=== PATIENT | female | born 1960 | race Caucasian/White ===

== ENCOUNTER 2021-10-08 07:04 | Emergency (ER) | payer BC ==
[~2021-10-08] VITALS: Ht 154.9 cm; Wt 78.4 kg
--- NOTE | 2021-10-08 07:22 | RAD ---
RS Compliance Statement: One or more of the following individualized dose reduction techniques were utilized for this examinat ion: 1. Automated exposure control 2. Adjustment of the mA and/or kV according to patient size 3. Use of iterative reconstruction technique CT head without contrast 10/08/2021 7:07 AM INDICATION: Right hemiparesis COMPARISON: None available TECHNIQUE: Multiple axial CT images of the head were obtained from skull base through the vertex with out intravenous contrast. FINDINGS: Head: Ventricles, sulci and basal cisterns are within normal limits. There is no hydrocephalus. Hernandez-white matter differentiation is normal. There is no acute intracranial hemorrhage. There is no mass, mass e ffect or midline shift. Remote lacunar infarct in the left cerebellum. Visualized portions of the orbits are normal. Near complete opacification of the right maxillary sinu s and anterior ethmoid air cells. Mastoid air cells are well aerated. Scalp and calvaria are normal. IMPRESSION: No acute intracranial hemorrhage. Remote lacunar infarct in left cerebellum. FOR INTERNAL CODING PURPOSES Critical result: Findings discussed with TRISH HURTADO MD at 10/08/2021 7:15 AM. RESULT CODE: (C) Electronically signed by: Fanny Kidd MD (10/08/2021 7:20 AM) [id number]
[2021-10-08 07:34] LABS: BASO # 0.1 x10^3/uL (0.0-0.2); BASO % 1 % (0-3); EOS # 0.1 x10^3/uL (0.0-0.7); EOS % 1 % (0-3); HEMATOCRIT 47.4 % (36.0-47.0); HEMOGLOBIN 15.2 g/dL (12.0-15.5); LYMPH # 1.6 x10^3/uL (1.0-4.8); LYMPH % 11 % (24-48); MEAN CORPUSCULAR HEMOGLOBIN 26 pg (25-35); MEAN CORPUSCULAR HGB CONC 32 g/dL (31-37); MEAN CORPUSCULAR VOLUME 82 fL (79-100); MONO # 0.4 x10^3/uL (0.0-1.1); MONO % 3 % (0-9); NEUT # 12.4 x10^3uL (1.8-7.7); NEUT % 85 % (31-73); PLATELET COUNT 226 x10^3/uL (140-400); RED BLOOD COUNT 5.78 x10^6/uL (3.50-5.40); RED CELL DISTRIBUTION WIDTH 15.7 % (11.5-14.5); WHITE BLOOD COUNT 14.6 x10^3/uL (4.0-11.0)
[2021-10-08] MEDS: IV RINGERS SOLUTION,LACTATED 1,000 ML IV SCH (07:40)
[2021-10-08 07:42] LABS: CALCIUM 9.4 mg/dL (8.5-10.1); CREATININE 0.8 mg/dL (0.6-1.0); GFR 72.4; POTASSIUM 3.8 mmol/L (3.5-5.1)
--- NOTE | 2021-10-08 07:49 | RAD ---
[employer] Compliance Statement: One or more of the following individualized dose reduction techniques were utilized for this examinat ion: 1. Automated exposure control 2. Adjustment of the mA and/or kV according to patient size 3. Use of iterative reconstruction technique CTA HEAD AND NECK W/WO CONTRAST 10/08/2021 7:26 AM INDICATION: Right-sided deficits COMPARISON: CT head 10/08/2021 TECHNIQUE: Multiple axial CT images of the head and neck were obtained after the intravenous administ ration of nonionic contrast. Coronal and sagittal reformats are provided. Maximum intensity projectio n images are provided. Stenosis calculations for CT, MR, and conventional angiography are based upon measurements of the dis ade ICA diameter in accordance with the NASCET methodology. Stenosis calculations for carotid ultraso und studies are derived from validated velocity criteria which are known to correlate with the NASCET methodology. FINDINGS: Ventricles, sulci and basal cisterns are normal in appearance. Hernandez-white matter differentiation is p reserved. There is no mass, mass effect or midline shift. Posterior fossa is normal in appearance. Se lla and suprasellar cistern appear normal. Orbits are normal in appearance . Scalp and calvaria appea r intact. Paranasal sinuses are well aerated. Mastoid air cells are well aerated. Visualized portions of lungs are clear. Thyroid gland is normal in appearance. Neck soft tissues are normal in appearance. No pathologically enlarged cervical lymphadenopathy. Pharynx and larynx appear intact. Vascular findings: There is a normal three-vessel aortic arch. Severe calcified atheromatous plaque is identified involv ing the thoracic aorta. There is eccentric noncalcified atheromatous plaque with ulcerated margins me asuring 1.3 cm in thickness along the ascending thoracic aorta (series 8, image 842). Three-vessel co ronary artery vascular calcifications are present. Noncalcified atheromatous plaque is identified at the origin the right innominate artery with mild stenosis. Origin of the left common carotid artery i s patent. There is a short segment dissection involving the left subclavian origin (series 8, image 7 [id number]) with the true lumen measuring up to 6 mm, distally measuring 9 mm suggestive of at least 30 perce nt stenosis. Origin of the right common carotid artery is patent. There is mild irregularity of the right common c arotid artery secondary to noncalcified atheromatous plaque. There is calcified and noncalcified athe romatous plaque at the right carotid bifurcation. There is 25 percent stenosis of proximal right cerv ical internal carotid artery. Right mid to distal cervical internal carotid artery is tortuous in cou rse. External carotid artery is patent. Mild to moderate irregularity of the distal left common carotid artery secondary to noncalcified athe romatous plaque. Densely calcified atheromatous plaque identified the left carotid bifurcation withou t hemodynamically significant stenosis. Mild tortuosity of the left cervical internal carotid artery without significant stenosis. Vertebral arteries dominant. Left vertebral artery is diminutive and moderately irregular. Intracranial segments of internal carotid arteries are normal in course and caliber. There is mild ca lcified atheromatous plaque involving the cavernous segments without significant stenosis. Origins of the ophthalmic segments of the internal carotid artery appears widely patent. There is moderate irre gularity of the left middle cerebral artery and sylvian branches with mild to moderate multifocal berry noses. Mild to moderate irregularity of the right middle cerebral artery and sylvian branches. Anteri or cerebral arteries are normal in course and caliber. Anterior communicating artery is visualized. Basilar artery is mildly irregular compatible with intracranial atherosclerotic changes. There is fet al origin of the left posterior cerebral artery. Superior cerebellar arteries are widely patent. Post erior cerebral arteries are normal in course and caliber. There is no aneurysm, vascular malformation or high-grade stenosis/large vessel occlusion involving c ircle of [place]. Superior sagittal sinus is patent. IMPRESSION: 1. There is no evidence for acute intracranial hemorrhage. 2. 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 3. There is no evidence for hemodynamically significant carotid stenosis. Moderate calcified and nonc alcified atheromatous plaque identified at the carotid bifurcations. 4. Moderate irregularity of the common carotid arteries and intracranial vessels was compatible with atherosclerotic changes as detailed above. 5. Advanced calcified and noncalcified atheromatous plaque involving the thoracic aorta with ulcerate d plaque along the ascending aorta. No penetrating aortic ulcer. 6. There is no aneurysm, vascular malformation or high-grade stenosis/large vessel occlusion involvin g the [place]. 7. Moderate irregularity of the left vertebral artery without occlusion or dissection. FOR INTERNAL CODING PURPOSES Critical result: Findings discussed with TRISH HURTADO MD at 10/08/2021 7:40 AM. RESULT CODE: (C) Electronically signed by: Fanny Kidd MD (10/08/2021 7:47 AM) [id number]
[2021-10-08 07:54] LABS: ALBUMIN 3.9 g/dL (3.4-5.0); ALBUMIN/GLOBULIN RATIO 1.1 (1.0-1.7); MAGNESIUM 2.1 mg/dL (1.8-2.4); PHOSPHORUS 2.8 mg/dL (2.6-4.7); TOTAL BILIRUBIN 0.2 mg/dL (0.2-1.0); TOTAL PROTEIN 7.3 g/dL (6.4-8.2)
--- NOTE | 2021-10-08 08:26 | PHYS DOC ---
General Adult EDM: Chief Complaint: NEURO SYMPTOMS/DEFICITS HPI: HPI: Patient is a 58-year-old female coming in from home via EMS for code stroke. Patient has confusion, right upper and lower extremity weakness, and was incontinent of urine. Per last known normal was 2200 last night, approximately 9 hours prior to arrival. Per patient's she has a history of hypertension dyslipidemia, takes amlodipine and atorvastatin with a 81 mg aspirin daily. Patient has no known deficits and works as a computer operator. He says she was laying on the couch watching TV when he went to sleep and normal at that time. Review of Systems: Review of Systems: All other systems within normal limits except for as noted in the HPI Current Medications: Current Meds: Current Medications Medications (Trade) Dose Ordered Sig/Rosalio Start Time Stop Time Status Last Admin Dose Admin Lactated Ringer's 1,000 ml @ 100 mls/hr Q10H 10/08/21 07:30 10/08/21 07:40 100 MLS/HR Allergies: Allergies: Allergies Coded Allergies Type Severity Reaction Last Updated Verified No Known Drug Allergies 10/08/21 No Physical Exam: PE: Constitutional: Well developed, well nourished, no acute distress, non-toxic appearance. [] HENT: Normocephalic, atraumatic, bilateral external ears normal, nose normal. [] Eyes: PERRLA, conjunctiva normal, no discharge. [] Neck: No rigidity, supple, no stridor. [] Cardiovascular: Regular rate and rhythm, brisk cap refill [] Lungs & Thorax: Non labored symmetric respirations, no tachypnea or respiratory distress [] Abdomen: Soft, nondistended. Skin: Warm, dry, no erythema, no rash. [] Back: Unremarkable Extremities: No deformities, range of motion grossly intact, no lower extremity edema [] Neurologic: Alert and intermittently cooperative with exam. Patient has right facial droop, right upper and lower extremity strength 0 out of 5. Sensation intact in right face and lower extremity, no sensation in right upper extremity. Patient is able to interact and respond to simple questions but is not oriented to date or other history. Psychologic: Affect normal, judgement normal, mood normal. [] Current Patient Data: Labs: Laboratory Tests Test 10/08/21 07:08 White Blood Count 14.6 x10^3/uL (4.0-11.0) H Red Blood Count 5.78 x10^6/uL (3.50-5.40) H Hemoglobin 15.2 g/dL (12.0-15.5) Hematocrit 47.4 % (36.0-47.0) H Mean Corpuscular Volume 82 fL (79-100) Mean Corpuscular Hemoglobin 26 pg (25-35) Mean Corpuscular Hemoglobin Concent 32 g/dL (31-37) Red Cell Distribution Width 15.7 % (11.5-14.5) H Platelet Count 226 x10^3/uL (140-400) Neutrophils (%) (Auto) 85 % (31-73) H Lymphocytes (%) (Auto) 11 % (24-48) L Monocytes (%) (Auto) 3 % (0-9) Eosinophils (%) (Auto) 1 % (0-3) Basophils (%) (Auto) 1 % (0-3) Neutrophils # (Auto) 12.4 x10^3uL (1.8-7.7) H Lymphocytes # (Auto) 1.6 x10^3/uL (1.0-4.8) Monocytes # (Auto) 0.4 x10^3/uL (0.0-1.1) Eosinophils # (Auto) 0.1 x10^3/uL (0.0-0.7) Basophils # (Auto) 0.1 x10^3/uL (0.0-0.2) Sodium Level 140 mmol/L (136-145) Potassium Level 3.8 mmol/L (3.5-5.1) Chloride Level 103 mmol/L (98-107) Carbon Dioxide Level 29 mmol/L (21-32) Anion Gap 8 (6-14) Blood Urea Nitrogen 18 mg/dL (7-20) Creatinine 0.8 mg/dL (0.6-1.0) Estimated GFR (Cockcroft-Gault) 72.4 BUN/Creatinine Ratio 23 (6-20) H Glucose Level 135 mg/dL (70-99) H Calcium Level 9.4 mg/dL (8.5-10.1) Phosphorus Level 2.8 mg/dL (2.6-4.7) Magnesium Level 2.1 mg/dL (1.8-2.4) Total Bilirubin 0.2 mg/dL (0.2-1.0) Aspartate Amino Transferase (AST) 18 U/L (15-37) Alanine Aminotransferase (ALT) 36 U/L (14-59) Alkaline Phosphatase 90 U/L (46-116) Troponin I High Sensitivity 21 ng/L (4-50) SG-Avn-U-Type Natriuretic Peptide 351 pg/mL (0-124) H Total Protein 7.3 g/dL (6.4-8.2) Albumin 3.9 g/dL (3.4-5.0) Albumin/Globulin Ratio 1.1 (1.0-1.7) Vital Signs: Vital Signs Date Time Temp Pulse Resp B/P (MAP) Pulse Ox O2 Delivery O2 Flow Rate FiO2 10/08/21 07:24 97.4 89 18 152/85 (107) 96 Room Air EKG: EKG: Sinus rhythm, heart rate 74, normal axis, no STEMI [] Radiology/Procedures: Radiology/Procedures: [place] [address] IMAGING REPORT Addendum PATIENT: LUBA COLLADO ACCOUNT: [id number] : 1960 LOCATION: ER AGE: 61 SEX: F EXAM STATUS: REG ER ORD. PHYSICIAN: TRISH HURTADO MD REASON: right deficits PROCEDURE: CT ANGIOGRAPHY HEAD AND NECK ADDENDUM ADDENDUM #1 Addendum: Findings reported to Antoinette at the time of image interpretation at 10/08/2021 7:40 AM (Incorrectly stated as Dr. Hurtado on initial report). Findings later discussed with Dr. Hurtado. Electronically signed by: Anoop Manning MD (10/08/2021 8:02 AM) [id number] ORIGINAL REPORT RS Compliance Statement: One or more of the following individualized dose reduction techniques were utilized for this examination: 1. Automated exposure control 2. Adjustment of the mA and/or kV according to patient size 3. Use of iterative reconstruction technique CTA HEAD AND NECK W/WO CONTRAST 10/08/2021 7:26 AM INDICATION: Right-sided deficits COMPARISON: CT head 10/08/2021 TECHNIQUE: Multiple axial CT images of the head and neck were obtained after the intravenous administration of nonionic contrast. Coronal and sagittal reformats are provided. Maximum intensity projection images are provided. Stenosis calculations for CT, MR, and conventional angiography are based upon measurements of the distal ICA diameter in accordance with the NASCET methodology. Stenosis calculations for carotid ultrasound studies are derived from validated velocity criteria which are known to correlate with the NASCET methodology. FINDINGS: Ventricles, sulci and basal cisterns are normal in appearance. Hernandez-white matter differentiation is preserved. There is no mass, mass effect or midline shift. Posterior fossa is normal in appearance. Sella and suprasellar cistern appear normal. Orbits are normal in appearance . Scalp and calvaria appear intact. Paranasal sinuses are well aerated. Mastoid air cells are well aerated. Visualized portions of lungs are clear. Thyroid gland is normal in appearance. Neck soft tissues are normal in appearance. No pathologically enlarged cervical lymphadenopathy. Pharynx and larynx appear intact. Vascular findings: There is a normal three-vessel aortic arch. Severe calcified atheromatous plaque is identified involving the thoracic aorta. There is eccentric noncalcified atheromatous plaque with ulcerated margins measuring 1.3 cm in thickness along the ascending thoracic aorta (series 8, image 842). Three-vessel coronary artery vascular calcifications are present. Noncalcified atheromatous plaque is identified at the origin the right innominate artery with mild stenosis. Origin of the left common carotid artery is patent. There is a short segment dissection involving the left subclavian origin (series 8, image 747) with the true lumen measuring up to 6 mm, distally measuring 9 mm suggestive of at least 30 percent stenosis. Origin of the right common carotid artery is patent. There is mild irregularity of the right common carotid artery secondary to noncalcified atheromatous plaque. There is calcified and noncalcified atheromatous plaque at the right carotid bifurcation. There is 25 percent stenosis of proximal right cervical internal carotid artery. Right mid to distal cervical internal carotid artery is tortuous in course. External carotid artery is patent. Mild to moderate irregularity of the distal left common carotid artery secondary to noncalcified atheromatous plaque. Densely calcified atheromatous plaque identified the left carotid bifurcation without hemodynamically significant sten osis. Mild tortuosity of the left cervical internal carotid artery without significant stenosis. Vertebral arteries dominant. Left vertebral artery is diminutive and moderately irregular. Intracranial segments of internal carotid arteries are normal in course and caliber. There is mild calcified atheromatous plaque involving the cavernous segments without significant stenosis. Origins of the ophthalmic segments of the internal carotid artery appears widely patent. There is moderate irregularity of the left middle cerebral artery and sylvian branches with mild to moderate multifocal stenoses. Mild to moderate irregularity of the right middle cerebral artery and sylvian branches. Anterior cerebral arteries are normal in course and caliber. Anterior communicating artery is visualized. Basilar artery is mildly irregular compatible with intracranial atherosclerotic changes. There is origin of the left posterior cerebral artery. Superior cerebellar arteries are widely patent. Posterior cerebral arteries are normal in course and caliber. There is no aneurysm, vascular malformation or high-grade stenosis/large vessel occlusion involving grand traverse of Ruff. Superior sagittal sinus is patent. IMPRESSION: 1. There is no evidence for acute intracranial hemorrhage. 2. 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 3. There is no evidence for hemodynamically significant carotid stenosis. Moderate calcified and noncalcified atheromatous plaque identified at the carotid bifurcations. 4. Moderate irregularity of the common carotid arteries and intracranial vessels was compatible with atherosclerotic changes as detailed above. 5. Advanced calcified and noncalcified atheromatous plaque involving the thorac ic aorta with ulcerated plaque along the ascending aorta. No penetrating aortic ulcer. 6. There is no aneurysm, vascular malformation or high-grade stenosis/large vessel occlusion involving the grand traverse of Ruff. 7. Moderate irregularity of the left vertebral artery without occlusion or dissection. FOR INTERNAL CODING PURPOSES Critical result: Findings discussed with TRISH HURTADO MD at 10/08/2021 7:40 AM. RESULT CODE: (C) Electronically signed by: Anoop Manning MD (10/08/2021 7:47 AM) [id number] DICTATED AND SIGNED BY: ANOOP MANNING MD DATE: 10/08/21 0800 CC: TRISH HURTADO MD; PCP,UNKNOWN ~ PQRS Compliance Statement: One or more of the following individualized dose reduction techniques were utilized for this examination: 1. Automated exposure control 2. Adjustment of the mA and/or kV according to patient size 3. Use of iterative reconstruction technique CTA HEAD AND NECK W/WO CONTRAST 10/08/2021 7:26 AM INDICATION: Right-sided deficits COMPARISON: CT head 10/08/2021 TECHNIQUE: Multiple axial CT images of the head and neck were obtained after the intravenous administration of nonionic contrast. Coronal and sagittal reformats are provided. Maximum intensity projection images are provided. Stenosis calculations for CT, MR, and conventional angiography are based upon measurements of the distal ICA diameter in accordance with the NASCET methodology. Stenosis calculations for carotid ultrasound studies are derived from validated velocity criteria which are known to correlate with the NASCET methodology. FINDINGS: Ventricles, sulci and basal cisterns are normal in appearance. Hernandez-white matter differentiation is preserved. There is no mass, mass effect or midline shift. Posterior fossa is normal in appearance. Sella and suprasellar cistern appear normal. Orbits are normal in appearance . Scalp and calvaria appear intact. Paranasal sinuses are well aerated. Mastoid air cells are well aerated. Visualized portions of lungs are clear. Thyroid gland is normal in appearance. Neck soft tissues are normal in appearance. No pathologically enlarged cervical lymphadenopathy. Pharynx and larynx appear intact. Vascular findings: There is a normal three-vessel aortic arch. Severe calcified atheromatous plaque is identified involving the thoracic aorta. There is eccentric noncalcified atheromatous plaque with ulcerated margins measuring 1.3 cm in thickness along the ascending thoracic aorta (series 8, image 842). Three-vessel coronary artery vascular calcifications are present. Noncalcified atheromatous plaque is identified at the origin the right innominate artery with mild stenosis. Origin of the left common carotid artery is patent. There is a short segment dissection involving the left subclavian origin (series 8, image 747) with the true lumen measuring up to 6 mm, distally measuring 9 mm suggestive of at least 30 percent stenosis. Origin of the right common carotid artery is patent. There is mild irregularity of the right common carotid artery secondary to noncalcified atheromatous plaque. There is calcified and noncalcified atheromatous plaque at the right carotid bifurcation. There is 25 percent stenosis of proximal right cervical internal carotid artery. Right mid to distal cervical internal carotid artery is tortuous in course. External carotid artery is patent. Mild to moderate irregularity of the distal left common carotid artery secondary to noncalcified atheromatous plaque. Densely calcified atheromatous plaque identified the left carotid bifurcation without hemodynamically significant stenosis. Mild tortuosity of the left cervical internal carotid artery without significant stenosis. Vertebral arteries dominant. Left vertebral artery is diminutive and moderately irregular. Intracranial segments of internal carotid arteries are normal in course and caliber. There is mild calcified atheromatous plaque involving the cavernous segments without significant stenosis. Origins of the ophthalmic segments of the internal carotid artery appears widely patent. There is moderate irregularity of the left middle cerebral artery and sylvian branches with mild to moderate multifocal stenoses. Mild to moderate irregularity of the right middle cerebral artery and sylvian branches. Anterior cerebral arteries are normal in course and caliber. Anterior communicating artery is visualized. Basilar artery is mildly irregular compatible with intracranial atherosclerotic changes. There is origin of the left posterior cerebral artery. Superior cerebellar arteries are widely patent. Posterior cerebral arteries are normal in course and caliber. There is no aneurysm, vascular malformation or high-grade stenosis/large vessel occlusion involving grand traverse of Ruff. Superior sagittal sinus is patent. IMPRESSION: 1. There is no evidence for acute intracranial hemorrhage. 2. 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 3. There is no evidence for hemodynamically significant carotid stenosis. Moderate calcified and noncalcified atheromatous plaque identified at the carotid bifurcations. 4. Moderate irregularity of the common carotid arteries and intracranial vessels was compatible with atherosclerotic changes as detailed above. 5. Advanced calcified and noncalcified atheromatous plaque involving the thoracic aorta with ulcerated plaque along the ascending aorta. No penetrating aortic ulcer. 6. There is no aneurysm, vascular malformation or high-grade stenosis/large vessel occlusion involving the grand traverse of Ruff. 7. Moderate irregularity of the left vertebral artery without occlusion or dissection. FOR INTERNAL CODING PURPOSES Critical result: Findings discussed with TRISH HURTADO MD at 10/08/2021 7:40 AM. RESULT CODE: (C) Electronically signed by: Anoop Manning MD (10/08/2021 7:47 AM) [id number] DICTATED AND SIGNED BY: ANOOP MANNING MD DATE: 10/08/21 0732 CC: TRISH HURTADO MD; PCP,UNKNOWN ~ [][address] [address] IMAGING REPORT Signed PATIENT: LUBA COLLADO ACCOUNT: [id number] : 1960 LOCATION: ER AGE: 61 SEX: F EXAM STATUS: REG ER ORD. PHYSICIAN: TRISH HURTADO MD REASON: right deficits PROCEDURE: CT CODE STROKE HEAD WO PQRS Compliance Statement: One or more of the following individualized dose reduction techniques were utilized for this examination: 1. Automated exposure control 2. Adjustment of the mA and/or kV according to patient size 3. Use of iterative reconstruction technique CT head without contrast 10/08/2021 7:07 AM INDICATION: Right hemiparesis COMPARISON: None available TECHNIQUE: Multiple axial CT images of the head were obtained from skull base through the vertex without intravenous contrast. FINDINGS: Head: Ventricles, sulci and basal cisterns are within normal limits. There is no hydrocephalus. Hernandez-white matter differentiation is normal. There is no acute intracranial hemorrhage. There is no mass, mass effect or midline shift. Remote lacunar infarct in the left cerebellum. Visualized portions of the orbits are normal. Near complete opacification of the right maxillary sinus and anterior ethmoid air cells. Mastoid air cells are well aerated. Scalp and calvaria are normal. IMPRESSION: No acute intracranial hemorrhage. Remote lacunar infarct in left cerebellum. FOR INTERNAL CODING PURPOSES Critical result: Findings discussed with TRISH HURTADO MD at 10/08/2021 7:15 AM. RESULT CODE: (C) Electronically signed by: Anoop Manning MD (10/08/2021 7:20 AM) [id number] DICTATED AND SIGNED BY: ANOOP MANNING MD DATE: 10/08/21 0716 CC: TRISH HURTADO MD; PCP,UNKNOWN ~ Heart Score: C/O Chest Pain: No Risk Factors: Risk Factors: DM, Current or recent (<one month) smoker, HTN, HLP, family history of CAD, obesity. Risk Scores: Score 0 - 3: 2.5% MACE over next 6 weeks - Discharge Home Score 4 - 6: 20.3% MACE over next 6 weeks - Admit for Clinical Observation Score 7 - 10: 72.7% MACE over next 6 weeks - Early Invasive Strategies Course & Med Decision Making: Course & Med Decision Making Pertinent Labs and Imaging studies reviewed. (See chart for details) NIH 18, but past tPA window. No large vessel occlusion. Discussed patient exam and work-up with Dr. Monson and Dr. Lane from [facility]. They will accept patient transfer to [facility]. Patient transported via EMS in guarded condition. [] Dragon Disclaimer: Neda Disclaimer: This electronic medical record was generated, in whole or in part, using a voice recognition dictation system. Departure Departure: Impression: Primary Impression: CVA (cerebral vascular accident) Disposition: 02 SHORT TERM HOSPITAL Condition: GUARDED Referrals: PCP,UNKNOWN (PCP) TRISH HURTADO MD October 08, 2021 08:26
[2021-10-08] MEDS ORDERED: ONDANSETRON PF 4 MG/2 ML VIAL. ONE (08:30)
[2021-10-08 08:31] LABS: BARBITURATES NEG (NEG); BENZODIAZEPINES NEG (NEG); CANNABINOIDS NEG (NEG); COCAINE NEG (NEG); METHADONE NEG (NEG); OPIATES NEG (NEG); PHENCYCLIDINE NEG (NEG)
[2021-10-08] MEDS: ONDANSETRON PF 4 MG/2 ML VIAL. IVP ONE (08:33)
[2021-10-08 08:40] LABS: AMPHETAMINE/METHAMPHETAMINE NEG (NEG)
[2021-10-08 08:41] LABS: INFLUENZA A PATIENT NEGATIVE (NEGATIVE); INFLUENZA B PATIENT NEGATIVE (NEGATIVE)
--- NOTE | 2021-10-08 08:47 | RAD ---
AP chest. HISTORY: Stroke AP portable view was taken of the chest. Heart is normal in size. There is no pleural effusion. Patie nt's taken a poor inspiration. There are no confluent infiltrates. IMPRESSION: 1. No acute infiltrates. Electronically signed by: Gilberto Lozano MD (10/08/2021 8:45 AM) [id number]
[2021-10-08 08:51] LABS: BACTERIA,URINE 0 /HPF (0-FEW); CLARITY,URINE CLEAR; COLOR,URINE YELLOW; GLUCOSE,URINE NEG (NEG); NITRITE,URINE NEG (NEG); RBC,URINE 0 /HPF (0-2); UROBILINOGEN,URINE 0.2 mg/dL (0.2 mg/dL); WBC,URINE OCC /HPF (0-4)
[2021-10-08 09:23] VITALS: BP 161/87
== END 2021-10-08 09:37 | disposition short-term general hospital (02) ==
LOC: ER 07:04
DX: I63.9 Cerebral infarction, unspecified (principal); R53.1 Weakness; I10 Essential (primary) hypertension; E78.5 Hyperlipidemia, unspecified; Z20.822 Contact with and (suspected) exposure to COVID-19
CPT/HCPCS: 36415; 70450; 70496; 70498; 71045; 80053; 80307; 81001; 83735; 83880; 84100; 84484; 85025; 85610; 85730; 87428; 93005; 96361; 96374; 99285; C9803; J2405; J7120; U0003